=== PATIENT | female | born 1985 | race Caucasian/White ===

== ENCOUNTER 2020-10-19 09:46 | Emergency (ER) | payer OTHER ==
[~2020-10-19 09:46] MED LIST: BACTRIM DS TAB1 EACH PO; KEFLEX500 MG PO
== END 2020-10-19 10:48 | disposition home or self-care (01) ==
LOC: FER 09:46
DX: J06.9 Acute upper respiratory infection, unspecified (principal); F17.210 Nicotine dependence, cigarettes, uncomplicated; Z20.822 Contact with and (suspected) exposure to COVID-19
CPT/HCPCS: 99283; U0002